=== PATIENT | female | born 1955 | race Caucasian/White ===

== ENCOUNTER 2016-10-22 11:02 | Emergency (ER) | payer MEDICARE ==
--- NOTE | ~2016-10-22 | CT98 ---
[facility] A Service [facility] RADIOLOGY TEXT RESULTS PATIENT: CARMEN SAGASTUME LOCATION: SED : 57 UNIT #: [id number] AGE: [address]: Hector Dee MD SEX: F ORDER DR: [id number] [place] [address] [id number] E MR#: [id number] Acc #: [id number] NAME: CARMEN SAGASTUME. : 1955 SEX: F STUDY DATE/TIME: 10/22/2016 14:03 UNIT: SED ROOM: STUDY DESCRIPTION: CT Lumbar Spine Wo Cont Attending Physician: Hector Dee M.D. Ordering Physician: Hector Dee M.D. Primary Care Physician: Fredrick Venegas M.D. MEDICAL IMAGING REPORT This report is preliminary unless electronic signature is present. EXAM CT lumbar spine without contrast. DATE 10/22/2016 HISTORY 60-year-old female with right leg numbness and tingling sensation since Saturday. No known injury. COMPARISON None. PROCEDURE 2 mm noncontrast axial images through the lumbar spine. Sagittal and coronal reformatted images were obtained. This CT exam was performed with one or more of the following radiation dose reduction techniques: automatic exposure control, adjustment of mA and/or kV according to patient size, and iterative reconstruction. FINDINGS No lumbar spine fracture or subluxation is seen. Disc height appears well preserved at each lumbar level. Imaged paraspinal soft tissues appear within normal limits. No significant disc bulge or high-grade canal stenosis or high-grade foraminal stenosis is seen. Minor facet degenerative change at L4-5. IMPRESSION No acute lumbar spine findings. No evidence of high-grade canal or foraminal stenosis in the lumbar spine. Minor facet arthropathy at L4-5. [facility] A Service [facility] RADIOLOGY TEXT RESULTS PATIENT: CARMEN SAGASTUME LOCATION: SED : 57 UNIT #: [id number] AGE: [address]: Hector Dee MD SEX: F ORDER DR: Dictated by... Brittany Figueredo M.D. THIS IS AN ELECTRONICALLY VERIFIED REPORT Brittany Figueredo M.D. at 10/23/2016 8:48 AM [facility]/[place] TD: 10/22/2016 17:22 JOB #: [id number] MEDICAL IMAGING REPORT Page 1 of 1
--- NOTE | ~2016-10-22 | CT71 ---
[facility] A Service of [facility] RADIOLOGY TEXT RESULTS PATIENT: CARMEN SAGASTUME LOCATION: SED : 57 UNIT #: [id number] AGE: [address]: Hector Dee MD SEX: F ORDER DR: [id number] [place] [address] [id number] E MR#: [id number] Acc #: [id number] NAME: CARMEN SAGASTUME. : 1955 SEX: F STUDY DATE/TIME: 10/22/2016 14:00 UNIT: SED ROOM: STUDY DESCRIPTION: CT Head Wo Contrast Attending Physician: Hector Dee M.D. Ordering Physician: Hector Dee M.D. Primary Care Physician: Fredrick Venegas M.D. MEDICAL IMAGING REPORT This report is preliminary unless electronic signature is present. EXAM CT head 10/22/2016 HISTORY Right leg numb, tingling since Saturday. Sent from Dr. Aragon. No injury x1 week. Headache all over times today. Todd's disease, COPD, adrenal deficiency, hepatitis, gastritis. TECHNIQUE CT head performed skull base through vertex without intravenous contrast. This CT exam was performed with one or more of the following radiation dose reduction techniques: automatic exposure control, adjustment of mA and/or kV according to patient size, and iterative reconstruction. COMPARISON 07/02/2005 FINDINGS The brain stem is unremarkable. Some images degraded by streak/motion artifact. Cerebellum and cerebral hemispheres show normal monet matter - white matter differentiation. No hemorrhage. No evidence of acute cortical ischemia. Midline structures nondisplaced. Ventricle cistern and sulci normal in size and contour. No intra or extraaxial mass effect or abnormal intracranial fluid collection. The basal ganglia are intact. Central orbital soft tissues unremarkable. Visualized paranasal sinuses and mastoid air cells show areas of mild mucosal thickening and ethmoid air cells in left sphenoid sinus. There is no indication of acute sinusitis. IMPRESSION 1. No acute abnormality is seen in the brain. If the patient has ongoing neurologic symptoms, consider follow up imaging. [facility] A Service of [facility] RADIOLOGY TEXT RESULTS PATIENT: CARMEN SAGASTUME LOCATION: SED : 57 UNIT #: [id number] AGE: [address]: Hector Dee MD SEX: F ORDER DR: 2. Some images degraded by streak/motion artifact. 3. Areas of very mild mucosal thickening in the ethmoid air cells, left sphenoid sinus and not mentioned above, right frontal sinus. There is no indication of acute sinusitis. Dictated by... Moisés Diamond M.D. THIS IS AN ELECTRONICALLY VERIFIED REPORT Moisés Diamond M.D. at 10/23/2016 5:16 PM [facility]/diego TD: 10/22/2016 17:09 JOB #: [id number] MEDICAL IMAGING REPORT Page 1 of 1
[~2016-10-22 11:02] MED LIST: ALPRAZOLAM; BENTYL10 MG PO; BUMEX PO; BYSTOLIC10 MG PO; CORTEF10 MG PO; DEPAKOTE; DEPAKOTE ER; PERCOCET; PERCOCET10; SYMBICORT INH; TOPAMAX; TOPROL XL; ZOFRAN SL
[2016-10-22] MEDS ORDERED: MONTELUKAST SOD10 MG PO (11:17)
[2016-10-22] MEDS ORDERED: AMLODIPINE BESY10 MG PO (11:17)
[2016-10-22] MEDS ORDERED: DALIRESP500 MCG PO (11:17)
[2016-10-22] MEDS ORDERED: OMEPRAZOLE20 M1 PO (11:17)
[2016-10-22] MEDS ORDERED: ALPRAZOLAM1 MG PO (11:18)
[2016-10-22] MEDS ORDERED: HYDROCODON-ACE1 EAC5 PO (11:18)
[2016-10-22] MEDS ORDERED: NASONEX17 GM (11:18)
[2016-10-22] MEDS ORDERED: PROTOPIC100 G1 (11:19)
[2016-10-22] MEDS ORDERED: VOLTAREN100 GM (11:19)
[2016-10-22 13:31] LABS: BASOPHIL% 0.5 % (0-2.5); EOSINOPHIL# 0.3 X10e3 (0-0.7); EOSINOPHIL% 3.4 % (0.0-7.0); HEMATOCRIT 41.1 % (35.0-45.0); HEMOGLOBIN 13.7 gm/dL (12.0-16.0); LYMPHOCYTE# 1.8 X10e3 (1.0-3.5); MEAN CELL VOLUME 94.5 FL (83-96); MEAN CORPUSCULAR HEMOGLOBIN 31.4 PG (28-34); MEAN CORPUSCULAR HGB CONC 33.3 g/dL (30-36); MEAN PLATELET VOLUME 7.9 FL (6.5-11.5); MONOCYTE# 0.5 X10e3 (0-1.0); MONOCYTE% 6.7 % (3.0-12.0); NEUTROPHIL# 5.4 X10e3 (1.5-7.1); NEUTROPHIL% 67.4 % (40-75); PLATELET COUNT 249 X10e3 (140-420); RED BLOOD COUNT 4.35 X10e (3.90-5.30); RED CELL DISTRIBUTION WIDTH 12.7 % (11.0-15.5)
[2016-10-22 13:40] LABS: DIFF IND NO
[2016-10-22 13:44] LABS: INR 0.9; PROTHROMBIN TIME (PATIENT) 10.6 SECONDS (9.5-12.4)
[2016-10-22 13:52] LABS: PARTIAL THROMBOPLASTIN TIME 25.3 SECONDS (25.6-38.1)
[2016-10-22 13:54] LABS: ALBUMIN SERUM 3.9 g/dL (3.5-5.0); ALKALINE PHOSPHATASE 73 U/L (32-92); ALT (SGPT) 15 U/L (10-40); AST (SGOT) 18 U/L (10-42); BILIRUBIN,TOTAL 0.2 mg/dL (0.2-2.0); BLOOD UREA NITROGEN 8 mg/dL (9-23); BUN/CREATININE RATIO 11.42; CALCIUM SERUM 8.9 mg/dL (8.4-10.2); CARBON DIOXIDE 27 mmol/L (22-31); CHLORIDE 107 mmol/L (100-111); CREATININE SERUM 0.7 mg/dL (0.6-1.4); GLOM FILT RATE Estimated 94.8 mL/min (>60); GLUCOSE FASTING 88 mg/dL (70-110); PROTEIN TOTAL SERUM 7.1 g/dL (6.0-8.3); SODIUM 139 mmol/L (135-145)
[2016-10-22 13:55] LABS: BILIRUBIN, DIRECT <0.1 mg/dL (0.0-0.2); BILIRUBIN,INDIRECT 0.1 mg/dL (0.0-0.9)
== END 2016-10-22 16:19 | disposition home or self-care (01) ==
LOC: SED 11:02
PROVIDERS: Emergency Medicine
DX: M54.16 Radiculopathy, lumbar region (principal); R20.9 Unspecified disturbances of skin sensation; I10 Essential (primary) hypertension; J44.9 Chronic obstructive pulmonary disease, unspecified; F17.200 Nicotine dependence, unspecified, uncomplicated; Z90.710 Acquired absence of both cervix and uterus; Z79.899 Other long term (current) drug therapy
CPT/HCPCS: 36415; 70450; 72131; 80048; 80076; 85025; 85610; 85730; 99285